=== PATIENT | male | born 1945 | race Caucasian/White ===

== ENCOUNTER 2021-10-04 11:24 | Emergency (ER) | payer BC, OTHER ==
[~2021-10-04] VITALS: Ht 167.6 cm; Wt 78.0 kg
[2021-10-04 11:41] VITALS: BP_SYST 144
--- NOTE | 2021-10-04 11:48 | NUR ---
BIB FRIEND WITH C/C OF WHILE AT WORK PT FELL APPROXIMATELY 3 FEET FROM A LADDER. PT HIT HIS POSTERIOR HEAD ON FLOOR AND HIS RIGHT SIDE. REPORTS PAIN 3/10 FROM RIGHT ABDOMEN/CHEST AREA. DENIES ANY DIZZINESS, NAUSEA.
--- NOTE | 2021-10-04 11:50 | NUR ---
PLACED PT BACK IN WAITING ROOM.
--- NOTE | 2021-10-04 11:56 | NUR ---
PT WITH SMALL LACERATION TO POSTERIOR SCALP FROM FALL. WOUND CLEANSED WITH NS. NO ACTIVE BLEEDING NOTED.
[2021-10-04] MEDS ORDERED: TRAM50TA PO (13:30)
--- NOTE | 2021-10-04 14:00 | NUR ---
Patient received in bed 3; seen previously by . Cleaned lac on crown of head.
[2021-10-04 14:04] VITALS: BP_SYST 120
--- NOTE | 2021-10-04 16:13 | NUR ---
Patient given written and verbal discharge instructions and verbalizes understanding. ER MD discussed with patient the results and treatment provided. Patient in stable condition. ID arm band removed. Rx of given. Patient educated on pain management and to follow up with PMD. Pain Scale 0/10. Opportunity for questions provided and answered. Medication side effect fact sheet provided.
== END 2021-10-04 14:04 | disposition home or self-care (01) ==
LOC: SED 11:24
DX: S20.211A Contusion of right front wall of thorax, initial encounter (principal); S00.01XA Abrasion of scalp, initial encounter; Z79.899 Other long term (current) drug therapy; W11.XXXA Fall on and from ladder, initial encounter; Y93.89 Activity, other specified; Y92.89 Other specified places as the place of occurrence of the external cause; Y99.8 Other external cause status
CPT/HCPCS: 99283